=== PATIENT | male | born 1945 | race Caucasian/White ===

== ENCOUNTER 2021-04-23 21:16 | Outpatient (REF) | payer MEDICARE, BC, SELFPAY ==
[2021-04-23 20:44] LABS: Hemoglobin A1C 5.5 % (<5.7)
[2021-04-23 21:11] LABS: Folate 8.1 ng/mL (8.6-20.0); TSH (W/Ref FT4) 2.85 uIU/mL (0.36-3.74); Vitamin B12 286 pg/mL (193-986)
[2021-04-24 01:39] LABS: Vitamin D 25 Total 24.8 ng/mL (30-100)
[2021-04-25 10:51] LABS: Syphilis Serology (RPR) Negative (Negative)
== END 2021-04-23 21:17 | disposition home or self-care (01) ==
LOC: NCHCN 21:16
PROVIDERS: Visit Provider Family Medicine
DX: G62.9 Polyneuropathy, unspecified (principal); G31.84 Mild cognitive impairment of uncertain or unknown etiology; E55.9 Vitamin D deficiency, unspecified
CPT/HCPCS: 82306; 82607; 82746; 83036; 84443; 86592

== ENCOUNTER 2021-12-19 08:42 | Outpatient (REF) | payer MEDICARE, BC, SELFPAY | END 2021-12-19 08:43 | disposition home or self-care (01) | LOC: LBN 08:42 | PROVIDERS: Visit Provider Urology ==

== ENCOUNTER 2021-12-19 14:53 | Outpatient (REF) | payer MEDICARE, BC, SELFPAY ==
[2021-12-19 15:36] LABS: HCT 42.4 % (40.0-50.0); HGB 14.3 g/dL (13.5-17.5); MCH 31.5 pg (27.0-33.0); MCHC 33.7 % (32.0-36.0); MCV 93 fL (80-95); MPV 12.1 fL (8.0-11.0); Platelet Count 185 10^3/uL (130-400); RBC 4.54 10^6/uL (4.36-5.78); RDW 12.9 % (11.8-14.1); RDW-SD 44.1 fL; WBC 4.73 10^3/uL (4.4-10.8)
[2021-12-19 15:53] LABS: Folate 17.8 ng/mL (8.6-20.0); Vitamin B12 537 pg/mL (193-986)
[2021-12-22 06:19] LABS: Vitamin D 25 Total 29.3 ng/mL (30-100)
== END 2021-12-19 14:54 | disposition home or self-care (01) ==
LOC: NCHCN 14:53
PROVIDERS: Visit Provider Family Medicine
DX: D53.1 Other megaloblastic anemias, not elsewhere classified (principal); E55.9 Vitamin D deficiency, unspecified; N40.1 Benign prostatic hyperplasia with lower urinary tract symptoms; N13.8 Other obstructive and reflux uropathy; E29.1 Testicular hypofunction
CPT/HCPCS: 82306; 85027; 82607; 82746; 84153

== ENCOUNTER → 2021-12-24 02:24 | Outpatient (CLI) | payer MEDICARE, BC, SELFPAY ==
--- NOTE | 2021-12-24 07:32 | DI.US_ITS ---
APPROVED REPORT EXAM: Comprehensive 2D, Doppler, and color-flow Echocardiogram Patient Location: Out-Patient [facility] Molder: Clotilde Quiñones RDCS (AE) Indications: Aortic regurgitation, Conclusion Normal left ventricular wall thickness and chamber size. Estimated ejection fraction is 60%. Wall m otion is normal The right ventricle is not well visualized Both atria are mildly dilated Aortic valve is sclerotic and trileaflet. There is no aortic stenosis. There is moderate eccentric aortic regurgitation Mild mitral annular calcification. Mild mitral regurgitation Normal tricuspid valve with mild regurgitation. Estimated right ventricular systolic pressure is 25 mmHg Dilated aortic root and ascending aorta Wall motion Left Ventricle The left ventricle is normal size. The left ventricular systolic function is normal. The left ventric ular ejection fraction is within the normal range. There is normal left ventricular wall thickness. T here is normal LV segmental wall motion. There is no ventricular septal defect visualized. LVEF is 59 %. Right Ventricle Right ventricle is not well visualized. Right ventricular systolic function could not be assessed. Atria Left atrium is mildly dilated. Right atrium is mildly dilated. The interatrial septum is intact with no evidence for an atrial septal defect. Aortic Valve Aortic valve is calcified. Aortic valve is trileaflet. No hemodynamically significant valvular aortic stenosis. Moderate aortic regurgitation. Mitral Valve Mild mitral annular calcification. No evidence of mitral valve stenosis. Mild mitral regurgitation. Tricuspid Valve The tricuspid valve is normal in structure. There is no tricuspid valve stenosis. Mild tricuspid regu rgitation. Pulmonic Valve The pulmonary valve is normal in structure. There is no pulmonic valvular stenosis. Trace pulmonic re gurgitation. Great Vessels Aortic root is mildly dilated. The ascending aorta is severely dilated.4.27 cm Aortic arch is normal in caliber. IVC is normal in size and collapses >50% with inspiration. Pericardium There is no pericardial effusion. 2D Dimensions IVSD d PLAX 1.00 cm M: 0.6-1.2 LV Vol A2C d MOD 162.2 mL LVPW d PLAX 0.99 cm M: 0.6 - 1.2 LV Vol A4C d MOD 207.4 mL LVID d PLAX 5.55 cm M: 4.2 - 5.8 LA vol/ BSA A2C s A-L 49.2 mL/m2 LVDs 3.70 cm M: 2.5 - 4.0 LA vol/ BSA A4C s A-L 40.5 mL/m2 Ao Root d 3.93 cm M: 3.1 - 3.7 LA Vol/ BSA Biplane s A-L 45.5 mL/m2 RA Area A4C 25.30 cm2 LA Area A4C s MOD 25.30 cm2 RA Vol/ BSA A4C s A-L 44.0 mL/m2 LA Area A2C s MOD 27.37 cm2 Ao Asc Diam d 4.27 cm M: 2.6 - 3.4 LV EF A4C MOD 59.7 % LV EF Teichholz 60.9 % LV EF A2C MOD 58.6 % LVEF (Gandhi's) 58.22 % M: 52 - 72 LV EF Biplane MOD 58.2 % LV Volume 138.12 mL M: 62 - 150 SV 107.37 mL LV Volume Index 68.71 mL/m2 M: 34 - 74 SV Index 53.45 mL/m2 LV Vol Biplane MOD 184.4 mL FS 32.95 % M-Mode TAPSE 2.53 cm (M/F) >1.7 LV Diastology E/A Ratio 0.5 MV E Vmax 0.46 (0.4-1.3 m/s) MV A Vmax 0.85 (0.4-1.3 m/s) MV E/A Ratio 0.52 Aortic Valve LVOT Area 3.06 cm2 AoV Area Vmax 1.60 cm2 LVOT Vmax 1.11 m/s AoV Area/ BSA (Vmax) 0.79 cm2/m2 LVOT Mean Taiwo. 0.81 m/s AQUILES Mean Taiwo. 1.67 cm2 LVOT Peak Grad 4.9 mmHg AQUILES Mean Taiwo. Index 0.83 cm2/m2 LVOT Mean Grad 2.9 mmHg AR DT 2302 msec LVOT VTI 0.281 m AR PHT 668 msec LVOT Diam s 1.95 cm AoV Vmax 2.12 m/s Velocity Ratio 0.52 AoV Mean Taiwo. 1.48 m/s AoV Peak Grad 18.0 mmHg LVOT SV 86.05 mL AoV Mean Grad 10.0 mmHg AoV VTI 0.464 m AoV Area VTI 1.86 cm2 AoV Area/ BSA (VTI) 0.92 cm/m2 Mitral Valve MV DT 427 (160-240 msec) MV PHT 124 msec MV Area PHT 1.78 cm2 MV VTI 0.422 m MV Area VTI 2.04 (4.0-6.0 cm2) Pulmonary Valve PV Vmax 1.10 (0.5-1.5 m/s) RVOT Peak Gr. 1.64 mmHg PV Peak Grad 4.9 mmHg RVOT Mean Gr. 0.75 mmHg PV Mean Grad 2.4 mmHg RVOT VTI 0.147 m PV VTI 0.215 m RVOT Vmax 0.64 m/s Tricuspid Valve TR Peak Grad 21.8 mmHg TR Vmax 2.34 m/s RA Pressure 3.00 mmHg RVSP (TR) 24.8 mmHg
== END ==
PROVIDERS: Visit Provider Family Medicine
DX: I35.1 Nonrheumatic aortic (valve) insufficiency (principal)
CPT/HCPCS: 93306

== ENCOUNTER 2021-12-24 02:52 | Outpatient (CLI) | payer MEDICARE, BC, SELFPAY | END 2021-12-24 02:53 | disposition home or self-care (01) | LOC: LBO 02:53 | PROVIDERS: PCP Family Medicine ==

== ENCOUNTER → 2022-01-28 12:54 | Outpatient (CLI) | payer MEDICARE, BC, SELFPAY ==
--- NOTE | 2022-01-28 | DI.RAD_ITS ---
Exam(s) XR HIP LT COMPLETE AP PELVIS EXAM: XR HIP LT COMPLETE AP PELVIS CLINICAL HISTORY: LT HIP PAIN, M25.552 TECHNIQUE: COMPARISON: No exams were available for comparison FINDINGS: Two views were obtained. There are mild degenerative changes of the SI joints bilaterally. Cartilag inous joint spaces of the hips are fairly well maintained. No other significant bony or soft tissue abnormality seen. IMPRESSION: RADIATION DOSE DELIVERED: Total DLP
== END ==
PROVIDERS: PCP Family Medicine; Visit Provider Family Medicine
DX: M16.0 Bilateral primary osteoarthritis of hip (principal)
CPT/HCPCS: 73502

== ENCOUNTER → 2022-03-16 13:53 | Outpatient (BNVA) | payer MEDICARE, BC, SELFPAY | PROVIDERS: PCP Family Medicine; Referring Provider Family Medicine; Visit Provider Internal Medicine Cardiovascular Disease | DX: I77.810 Thoracic aortic ectasia (principal); I35.1 Nonrheumatic aortic (valve) insufficiency | CPT/HCPCS: 93005; 99202; 99203 ==

== ENCOUNTER 2022-03-16 14:02 | Outpatient (CLI) | payer MEDICARE, BC, SELFPAY ==
--- NOTE | 2022-03-16 14:00 | RT.EKG_ITS ---
APPROVED REPORT Exam: Resting ECG Reason for Exam: aortic regurg Patient Location: O HR:73 bpm ECG Measurements Heart Rate 73 AXIS WY 194 P 3 QRSd 105 QRS -18 QT 389 T -19 QTc 429 Conclusion Sinus rhythm...normal P axis, V-rate 50- 99 Abnormal R-wave progression, early transition...QRS area>0 in V2 LVH with secondary repolarization abnormality...multi-LVH criteria, abnrm ST-T
== END 2022-03-16 14:03 | disposition home or self-care (01) ==
LOC: DI.CARD 14:03
PROVIDERS: PCP Family Medicine; Visit Provider Internal Medicine Cardiovascular Disease
DX: I35.1 Nonrheumatic aortic (valve) insufficiency (principal); I77.819 Aortic ectasia, unspecified site
CPT/HCPCS: 93010

== ENCOUNTER 2022-04-21 18:51 | Outpatient (REF) | payer MEDICARE, BC, SELFPAY ==
[2022-04-21 20:35] LABS: HCT 40.5 % (40.0-50.0); HGB 13.5 g/dL (13.5-17.5); MCH 31.5 pg (27.0-33.0); MCHC 33.3 % (32.0-36.0); MCV 94 fL (80-95); MPV 11.9 fL (8.0-11.0); Platelet Count 202 10^3/uL (130-400); RBC 4.29 10^6/uL (4.36-5.78); RDW 12.5 % (11.8-14.1); RDW-SD 43.6 fL; WBC 6.63 10^3/uL (4.4-10.8)
[2022-04-21 21:12] LABS: Vitamin D 25 Total 37.1 ng/mL (30-100)
[2022-04-21 21:17] LABS: Vitamin B12 770 pg/mL (193-986)
[2022-04-21 21:23] LABS: Folate > 20.0 ng/mL (8.6-20.0)
== END 2022-04-21 18:52 | disposition home or self-care (01) ==
LOC: NCHCN 18:51
PROVIDERS: PCP Family Medicine; Visit Provider Family Medicine
DX: E55.9 Vitamin D deficiency, unspecified (principal); D53.1 Other megaloblastic anemias, not elsewhere classified; Z85.79 Personal history of other malignant neoplasms of lymphoid, hematopoietic and related tissues
CPT/HCPCS: 82306; 85027; 82607; 82746

== ENCOUNTER 2022-11-02 12:04 | Outpatient (REF) | payer MEDICARE, BC, SELFPAY ==
[2022-11-02 15:37] LABS: ALT 31 U/L (16-63); AST 21 U/L (15-37); Alkaline Phosphatase 42 U/L (46-116); Anion Gap 7.1 mmol/L (3-11); BUN 20 mg/dL (7-18); Bilirubin, Total 0.6 mg/dL (0.2-1.0); CO2 27.9 mmol/L (21.0-32.0); CREATININE 0.8 mg/dL (0.70-1.30); Calcium 8.7 mg/dL (8.5-10.1); Chloride 103 mmol/L (98-107); Estimated GFR 91.15 (mL/min/1.73m2); Glucose 97 mg/dL (74-106); Potassium 4.5 mmol/L (3.5-5.1); Sodium 138 mmol/L (136-145); Total Protein 6.9 g/dL (6.4-8.2)
[2022-11-06 18:51] LABS: Testosterone, Free 8.78 ng/dL (3.08-11.3); Testosterone, Total 401 ng/dL (240-950)
== END 2022-11-02 12:05 | disposition home or self-care (01) ==
LOC: LBN 12:04
PROVIDERS: PCP Family Medicine; Visit Provider Urology
DX: E29.1 Testicular hypofunction (principal)
CPT/HCPCS: 80053; 84402; 84403

== ENCOUNTER 2023-01-28 18:10 | Outpatient (REF) | payer MEDICARE, BC, SELFPAY ==
[2023-01-28 19:25] LABS: Abs Immature Grans 0.02 10^3/uL (0.0-0.06); Absolute Basophil Count 0.04 10^3/uL (0.0-0.2); Absolute Eosinophil Count 0.24 10^3/uL (0.0-0.7); Absolute Lymphocyte Count 2.28 10^3/uL (1.2-3.4); Absolute Monocyte Count 0.68 10^3/uL (0.1-0.8); Absolute Neutrophil Count 3.27 10^3/uL (1.2-6.7); Basophils % 0.6; Eosinophils % 3.7; HCT 40.5 % (40.0-50.0); HGB 13.8 g/dL (13.5-17.5); Immature Grans % 0.3; Lymphocytes % 34.9; MCH 31.2 pg (27.0-33.0); MCHC 34.1 % (32.0-36.0); MCV 92 fL (80-95); MPV 11.4 fL (8.0-11.0); Monocytes % 10.4; Neutrophils % 50.1; Platelet Count 187 10^3/uL (130-400); RBC 4.42 10^6/uL (4.36-5.78); RDW 12.7 % (11.8-14.1); RDW-SD 42.8 fL; WBC 6.53 10^3/uL (4.4-10.8)
[2023-01-28 19:28] LABS: Anion Gap 9.4 mmol/L (3-11); BUN 16 mg/dL (7-18); CO2 27.6 mmol/L (21.0-32.0); CREATININE 0.8 mg/dL (0.70-1.30); Calcium 8.9 mg/dL (8.5-10.1); Chloride 101 mmol/L (98-107); Estimated GFR 91.15 (mL/min/1.73m2); Glucose 87 mg/dL (74-106); Potassium 3.9 mmol/L (3.5-5.1); Sodium 138 mmol/L (136-145)
[2023-01-29 19:59] LABS: PSA, Screening 5.4 ng/mL (<=6.5)
== END 2023-01-28 18:11 | disposition home or self-care (01) ==
LOC: NCHCN 18:10
PROVIDERS: PCP Family Medicine; Visit Provider Physician Assistant Medical
DX: R35.0 Frequency of micturition (principal); Z12.5 Encounter for screening for malignant neoplasm of prostate; D53.1 Other megaloblastic anemias, not elsewhere classified
CPT/HCPCS: 80048; 84153; 85025

== ENCOUNTER 2023-03-15 12:05 | Outpatient (REF) | payer MEDICARE, BC, SELFPAY ==
[2023-03-15 15:55] LABS: C-Reactive Protein 0.65 mg/dL (0.0-0.3)
[2023-03-17 14:33] LABS: HLA-B27 Result Negative
== END 2023-03-15 12:06 | disposition home or self-care (01) ==
LOC: NCHCN 12:05
PROVIDERS: PCP Family Medicine; Visit Provider Family Medicine
DX: M53.3 Sacrococcygeal disorders, not elsewhere classified (principal); R79.82 Elevated C-reactive protein (CRP); Z01.83 Encounter for blood typing
CPT/HCPCS: 86812; 86140

== ENCOUNTER → 2023-03-16 07:44 | Outpatient (BNVA) | payer MEDICARE, BC, SELFPAY | PROVIDERS: PCP Family Medicine; Referring Provider Family Medicine; Visit Provider Surgery | DX: R10.31 Right lower quadrant pain (principal) | CPT/HCPCS: 99203; 99214 ==

== ENCOUNTER 2023-04-04 19:59 | Emergency (ER) | payer MEDICARE, BC, SELFPAY ==
[2023-04-04 20:05] VITALS: BP 121/63; PULSE 82; RESP 16; TEMP 36.9; O2SAT 97
--- NOTE | 2023-04-04 20:53 | ED.GENADUL_ITS ---
Discharge Plan Disposition Patient Disposition: Home Condition: Stable Discharge Details Chief Complaint: GenMedical Clinical Impression: COVID, Diarrhea Primary Care Provider: Ana María Mukherjee ED Provider: Deni Otto Home Meds and New Rx's Prescriptions: No Action turmeric root extract 500 mg capsule 500 mg PO DAILY testosterone 50 mg/5 gram (1 %) gel 1 tube transdermal QAM folic acid 1 mg tablet 1 mg PO DAILY vitamin B complex [B Complex-Vitamin B12] Tablet 1 tab PO DAILY esomeprazole magnesium [Nexium] 40 mg capsule,delayed release(DR/EC) 40 mg PO DAILY PRN gabapentin 100 mg capsule 100 mg PO TID PRN acetaminophen [Tylenol] 325 mg tablet 325 mg PO ONCE PRN ibuprofen 200 mg tablet 200 mg PO Q6H PRN cholecalciferol (vitamin D3) 50 mcg (2,000 unit) capsule 50 mcg PO DAILY senna 8.6 mg capsule 8.6 mg PO BID PRN Discharge Instructions Instructions: Acute Diarrhea (ED), Viral Syndrome (ED) Additional Instructions: Please continue to hydrate orally. Consider purchasing Gatorade and/or Pedialyte. Continue with ibuprofen and/or acetaminophen as needed for body aches and fevers. Please return to the emergency department for any worsening symptoms. Medical Decision Making 77-year-old male presents with several days of fatigue dry cough loose stool tested positive for COVID today, endorses that loose stools improving after Imodium. No blood or mucus in stool. No nausea no vomiting no abdominal pain no chest pain or shortness of breath. Lungs clear bilaterally afebrile nontoxic not tachycardic not hypotensive. No evidence of dehydration on examination. Patient family initially interested in Paxlovid treatment. I counseled patient and family at bedside regarding pros and cons of Paxlovid and after shared dec ision we decided to hold Paxil at this time. Given cough fatigue body aches I am administering a dose of p.o. dexamethasone for anti-inflammatory purposes. Patient given home care instructions and strict return precautions for any worsening symptoms. HPI General Date/Time Provider Initiated Documentation: 04/04/23 20:07 . HPI Narrative: 77-year-old male presents with several days of fatigue, loose stool, dry cough, denies shortness of breath chest pain presyncope nausea or vomiting. Denies abdominal pain or fevers. [place] some cold sweats and chills, tested positive for COVID today. Denies longstanding comorbidities or immunocompromise state; no blood or mucus in stool. Took some Imodium today and feels as if his stool frequency is slowing down/improving Related Data Home Medications Medication Instructions Recorded Confirmed acetaminophen 325 mg tablet 325 mg PO ONCE PRN 01/01/22 03/16/23 (Tylenol) cholecalciferol (vitamin D3) 50 50 mcg PO DAILY 01/01/22 03/16/23 mcg (2,000 unit) capsule esomeprazole magnesium 40 mg 40 mg PO DAILY PRN 01/01/22 03/16/23 capsule,delayed release (Nexium) gabapentin 100 mg capsule 100 mg PO TID PRN 01/01/22 03/16/23 ibuprofen 200 mg tablet 200 mg PO Q6H PRN 01/01/22 03/16/23 sennosides 8.6 mg capsule (senna) 8.6 mg PO BID PRN 01/01/22 03/16/23 turmeric root extract 500 mg 500 mg PO DAILY 03/16/22 03/16/23 capsule folic acid 1 mg tablet 1 mg PO DAILY 03/16/23 03/16/23 testosterone 50 mg/5 gram (1 %) 1 tube transdermal QAM 03/16/23 03/16/23 transdermal gel vitamin B complex (B 1 tab PO DAILY 03/16/23 03/16/23 Complex-Vitamin B12 tablet) Allergies Allergy/AdvReac Type Severity Reaction Status Date / Time gluten Allergy Severe Verified 03/16/23 07:52 Penicillins Allergy Verified 03/16/23 07:52 General Stated Complaint: GenMedical MARK: 3 Review of Systems Narrative: Review of Systems Constitutional: Fatigue Eyes: negative ENT: negative Cardiovascular: negative Respiratory: Cough Gastrointestinal: Diarrhea : negative Musculoskeletal: negative Skin: negative Neurologic: negative Psych: negative PFSH All Active Problems (Updated 04/04/23 @ 20:58 by Deni Otto MD) Diarrhea (Acute) COVID (Acute) Preoperative clearance (Acute) Right lower quadrant abdominal pain (Acute) Pain of left hip joint (Acute) Urinary frequency (Acute) Hernia (Chronic) Medical History Aortic dilatation Arthritis Barretts esophagus Basal cell carcinoma Dermatitis herpetiformis Erectile dysfunction Folate deficiency anemia Hypogonadism in male Lymphoma 1977 Mild cognitive impairment Moderate aortic regurgitation Neuropathy Squamous cell carcinoma in situ Vitamin B12 deficiency Vitamin D deficiency Surgical History S/P appendectomy (~1977) S/P Yara fundoplication (without gastrostomy tube) procedure Family History Mother Cancer breast ( of) Father Abdominal aortic aneurysm Brother Heart disease Cabgx2 , 2 valve replacements, Sister Abdominal aortic aneurysm had repaired Aortic valve replaced Social History Smoking/Tobacco Use Status: Never Smoking risk assessment performed?: Yes Alcohol Intake: current Alcohol Intake frequency: 0-2 drinks per day Drug use: Never Substance use type: does not use Do you feel safe at home: Yes Do you feel safe in your relationship?: Yes Exam Narrative Exam Narrative: Physical Examination General: alert, awake, cooperative, resting comfortably, no acute distress HEENT: normocephalic, atraumatic; PERRL, EOM intact, conjunctiva normal; no nasal discharge; moist mucous membranes, oral and pharyngeal mucosa normal, tolerating secretions Neck: supple, trachea midline; full ROM Chest: normal to inspection Respiratory: normal respiratory effort, speaking in full sentences, clear to auscultation, no wheezing, rales or rhonchi Cardiac: regular rate, regular rhythm, S1S2 intact, no murmurs rubs or gallops GI: abdomen soft, non-tender, non-distended; no palpable mass or hepatosplenomegaly Skin: no lesions, rashes or trauma appreciated Neuro: AAOx3, normal speech, moving all extremities Course Vital Signs Vital signs: Vital Signs Temperature 36.9 C 04/04/23 20:05 Pulse 82 04/04/23 20:05 Respiratory Rate 16 04/04/23 20:05 Blood Pressure 121/63 04/04/23 20:05 Pulse Oximetry 97 04/04/23 20:05 Temperature 36.9 C 04/04/23 20:05 Temperature Source Oral 04/04/23 20:05 Pulse 82 04/04/23 20:05 Respiratory Rate 16 04/04/23 20:05 Respiratory Effort Normal, Non-Labored 04/04/23 20:12 Blood Pressure 121/63 04/04/23 20:05 Blood Pressure Position Sitting 04/04/23 20:05 Pulse Oximetry 97 04/04/23 20:05 Oxygen Delivery Method Room Air 04/04/23 20:05 Oxygen Flow Rate 0 04/04/23 20:05
[2023-04-04] MEDS: Dexamethasone 10 MG/ML VIAL PO (21:04)
[2023-04-04 21:05] VITALS: RESP 16
[2023-04-04 21:08] VITALS: BP 124/64; PULSE 80; RESP 16; O2SAT 97
== END 2023-04-04 21:09 | disposition home or self-care (01) ==
PROVIDERS: Emergency Provider Emergency Medicine; PCP Family Medicine
DX: U07.1 COVID-19 (principal); R19.7 Diarrhea, unspecified; R05.9 Cough, unspecified; R53.83 Other fatigue; R52 Pain, unspecified
CPT/HCPCS: 99283; J1100

== ENCOUNTER → 2023-04-20 02:24 | Outpatient (CLI) | payer MEDICARE, BC, SELFPAY ==
--- NOTE | 2023-04-20 | DI.MRI_ITS ---
Exam(s) MR LUMBAR SPINE WO EXAM: MR LUMBAR SPINE WO CLINICAL HISTORY: SPINAL STENOSIS, LUMBAR, M48.061, SACROILIAC JOINT PAIN RT, M53.3. TECHNIQUE: Multiplanar multisequence MRI of the Lumbar spine was performed. COMPARISON: MR MR LUMBAR SPINE WO CONTRAST from 11/20/2019 FINDINGS: Bones: The last intervertebral disc space is designated the S1/S2 level for the numbering purpose of this examination. The vertebral body heights are well maintained. There is a right convex lumbar sc oliosis. Endplate degenerative signal changes are seen particularly at L3-4 and L4-L5 Cord: The conus tip ends at the T12-L1 level. It is of normal size and signal intensity. T12-L1: No disc herniations or bulges are present. No central spinal canal or neural foraminal stenos is. L1-2: No disc herniations or bulges are present. No central spinal canal or neural foraminal stenosis . L2-3: No disc herniations or bulges are present. No central spinal canal or neural foraminal stenosis . L3-4: No disc herniations or bulges are present. There are mild degenerative changes of the left face t joints at this level.No significant right neural foraminal stenosis or central spinal canal stenosi s. There is mild left neural foraminal stenosis. L4-5: There is a diffuse disc bulge. There are degenerative changes of the facets. No significant c entral spinal canal stenosis is seen.There is mild bilateral neural foraminal stenosis. L5-S1: There is a mild diffuse disc bulge. There are hypertrophic changes of the facets, right great er than left. No significant central spinal canal stenosis is seen.There is moderate right neural fo raminal stenosis. No significant left neural foraminal stenosis. Soft tissues: The visualized SI joints and sacrum are well maintained. The paraspinal soft tissues ar e unremarkable. IMPRESSION: 1. Multilevel degenerative changes in the lumbar spine and a right convex lumbar curvature. 2. Degenerative changes at L5-S1 resulting in moderate right neural foraminal stenosis. 3. Degenerative changes at L4-L5 resulting in mild bilateral neural foraminal stenosis. 4. Degenerative changes at L3-L4 resulting in mild left neural foraminal stenosis. DATA REPOSITORY:
== END ==
PROVIDERS: PCP Family Medicine; Visit Provider Family Medicine
DX: M48.062 Spinal stenosis, lumbar region with neurogenic claudication (principal); M53.3 Sacrococcygeal disorders, not elsewhere classified
CPT/HCPCS: 72148

== ENCOUNTER → 2023-04-21 04:16 | Outpatient (CLI) | payer MEDICARE, BC, SELFPAY ==
--- NOTE | 2023-04-21 08:02 | DI.CT_ITS ---
Exam(s) CT ABDOMEN PELVIS W EXAM: CT ABDOMEN PELVIS W CLINICAL HISTORY: RLQ pain, appendectomy scar, felt a bulge,r10.31. TECHNIQUE: Imaging Protocol: Axial computed tomography images with coronal and sagittal reformatted images were created and reviewed CONTRAST MATERIAL: Intravenous: Omnipaque 350 Contrast volume:100 ml Oral: yes COMPARISON: No exams were available for comparison FINDINGS: ABDOMEN and PELVIS: Lung Bases: Normal where visualized. Heart is the included on exam but significantly enlarged. Mod erate size hiatal hernia. Liver: Normal density. No measurable mass. Gallbladder and biliary tract: No radiodense calculus or dilation. Pancreas: Normal density. No abnormal calcifications or inflammatory process. No evidence of mass. Spleen: Normal. Kidneys: Normal size, contour and axis. No radiodense stones. No obstructive uropathy. No suspicious masses seen. Adrenal glands: No masses seen. Vasculature: Abdominal aorta non-dilated. Soft tissues: Fatty containing right inguinal hernia. Mild scarring right lower quadrant abdominal w all without evidence of hernia. Bladder: No gross wall thickening. No calculi.No focal mass. Bowel: Diverticulosis. No evidence of diverticulitis. Normal quantity of stool. No obstruction. No bowel wall thickening. Appendix not seen Peritoneal cavity: No ascites. No focal collection or mesenteric inflammatory response. Bones: Degenerative changes and mild scoliosis. Reproductive organs: Within normal limits. Lymph nodes: Unremarkable. IMPRESSION:: Small fatty containing right inguinal hernia. Diverticulosis. No evidence of diverticulitis. Moderate size hiatal hernia. Cardiomegaly. RADIATION DOSE DELIVERED: Total DLP DATA REPOSITORY: All CT scans at this facility are submitted to the National Radiology Data Registry (NRDR) Dose Index Registry (DIR) with the [employer] (A[employer]). RADIATION OPTIMIZATION: All CT scans at this facility use at least one of these dose optimization te chniques: automated exposure control; mA and/or kV adjustment per patient size (includes targeted exa ms where dose is matched to clinical indication); or iterative reconstruction.
[2023-04-21] MEDS: Barium Sulfate 2% W/V-Berry Smoothie 450 ML BTL PO (11:30)
[2023-04-21 11:43] LABS: CREATININE 0.8 mg/dL (0.70-1.30); Estimated GFR 91.15 (mL/min/1.73m2)
[2023-04-21] MEDS: Normal Saline - Diluent 50 ML VIAL IJ (13:20)
[2023-04-21] MEDS: Omnipaque 350 MG/ML 500 ML BTL-Imaging package IJ (13:21)
== END ==
PROVIDERS: PCP Family Medicine; Visit Provider Surgery
DX: Z01.818 Encounter for other preprocedural examination (principal); R10.31 Right lower quadrant pain; K40.90 Unilateral inguinal hernia, without obstruction or gangrene, not specified as recurrent; I51.7 Cardiomegaly; K44.9 Diaphragmatic hernia without obstruction or gangrene
CPT/HCPCS: 74177; 82565

== ENCOUNTER 2023-04-28 11:42 | Day surgery (SDC) | payer MEDICARE, BC, SELFPAY ==
[2023-04-28] VITALS (8 sets, daily range): BP systolic 105–173; BP diastolic 56–90; PULSE 52–71; RESP 13–18; TEMP 36.1–36.8; O2SAT 96–99; BMI 28.8
--- NOTE | 2023-04-28 07:03 | W.PM.HP.N ---
Date of service: 04/28/23 Time of Service: 15:04 Assessment and Plan Assessment and plan (1) Right inguinal hernia: Status: Acute Assessment and plan: Mr. Melendez is a pleasant 77 year old male with a Right inguinal hernia. He has had some discomfort. We discussed the Hernia repair in detail. We also discussed the possible complications. Risks, benefits and complications have been reviewed. Complications include but are not limited to bleeding, infection, injury to vas, vessels and nerves, injury to bowel, recurrence (3-5%), chronic pain and adverse reaction to medications. Questions were entertained and answered to their satisfaction and they wished to proceed. The site was marked in [facility]. The patient signed the consent History of Present Illness Narrative: Mr. Melendez is a pleasant 77-year-old gentleman who is here in [facility] for right inguinal hernia repair. Patient tells me that 1 morning in the shower he was washing himself when he felt a lump in the right lower quadrant. It was not in the groin it was a little bit higher up. He was able to push on it and disappeared. 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 He has been having some back pain as well secondary to arthritis and has stopped lifting. Since he has not been doing any lifting the discomfort in the right lower quadrant has gone away as well. He has not had any changes in bowel habits or any urinary symptoms. His past surgical history is significant for open appendectomy back in 1977 as well as a Yara fundoplication. He has had regular colonoscopies and upper endoscopies done at [facility] [place]. He has some mitral regurg but no history of heart attacks or strokes. CT scan showed a Right inguinal hernia. Review of Systems Constitutional Constitutional: Denies fatigue, Denies fever(s), Denies headache(s) and Denies weight loss Eyes Eyes: Denies blurry vision and Denies change in vision ENT Ears, Nose, Mouth, and Throat: Denies dysphagia and Denies headache(s) Cardiovascular Cardiovascular: Denies chest pain, Denies chest pain at rest, Denies irregular heart rhythm, Denies palpitations, Denies dyspnea and Denies dyspnea on exertion Respiratory Respiratory: Denies cough, Denies dyspnea and Denies dyspnea on exertion Gastrointestinal Gastrointestinal: Reports system reviewed and no additional complaints, except as documented and Denies dysphagia Neurologic Neurologic: Denies headache(s) Endocrine Endocrine: Denies fatigue and Denies palpitations Hematologic/Lymphatic Hematologic/Lymphatic: Denies easy bleeding, Denies easy bruising and Denies lymphadenopathy Allergic/Immunologic Allergic/Immunologic: Reports system reviewed and no additional complaints, except as documented PFSH All Active Problems (Updated 04/28/23 @ 15:06 by Mary Reynolds MD) Right inguinal hernia (Acute) Diarrhea (Acute) COVID (Acute) Preoperative clearance (Acute) Right lower quadrant abdominal pain (Acute) Pain of left hip joint (Acute) Urinary frequency (Acute) Hernia (Chronic) Medical History Neuropathy Arthritis Basal cell carcinoma 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 Vitamin D deficiency Lymphoma 1977 Barretts esophagus Erectile dysfunction Mild cognitive impairment Moderate aortic regurgitation Hypogonadism in male Folate deficiency anemia Vitamin B12 deficiency Aortic dilatation Surgical History S/P Yara fundoplication (without gastrostomy tube) procedure S/P appendectomy (~1977) Family History Mother Cancer breast ( of) Father Abdominal aortic aneurysm Brother Heart disease Cabgx2 , 2 valve replacements, Sister Abdominal aortic aneurysm had repaired Aortic valve replaced Social History Smoking/Tobacco Use Status: Never Smoking risk assessment performed?: Yes Alcohol Intake: current Alcohol Intake frequency: 0-2 drinks per day Drug use: Never Substance use type: does not use Housing: house Do you feel safe at home: Yes Do you feel safe in your relationship?: Yes Meds Allergies and Home Medications Allergies Allergy/AdvReac Type Severity Reaction Status Date / Time gluten Allergy Severe Verified 04/28/23 12:25 Penicillins Allergy Verified 04/28/23 12:25 Home Medications Medication Instructions Recorded Confirmed Type acetaminophen 325 mg tablet 325 mg PO ONCE PRN 01/01/22 04/28/23 History (Tylenol) cholecalciferol (vitamin D3) 50 50 mcg PO DAILY 01/01/22 04/28/23 History mcg (2,000 unit) capsule esomeprazole magnesium 40 mg 40 mg PO DAILY PRN 01/01/22 04/28/23 History capsule,delayed release (Nexium) gabapentin 100 mg capsule 100 mg PO TID PRN 01/01/22 04/28/23 History ibuprofen 200 mg tablet 200 mg PO Q6H PRN 01/01/22 04/28/23 History sennosides 8.6 mg capsule (senna) 8.6 mg PO BID PRN 01/01/22 04/28/23 History turmeric root extract 500 mg 500 mg PO DAILY 03/16/22 04/28/23 History capsule folic acid 1 mg tablet 1 mg PO DAILY 03/16/23 04/28/23 History testosterone 50 mg/5 gram (1 %) 1 tube transdermal QAM 03/16/23 04/28/23 History transdermal gel vitamin B complex (B 1 tab PO DAILY 03/16/23 04/28/23 History Complex-Vitamin B12 tablet) Exam Resp Effort & Inspection: normal respiratory effort Auscultation: clear to auscultation bilaterally Cardio Rate: regular rate Rhythm: regular rhythm GI Inspection: normal to inspection Palpation: soft, no hepatosplenomegaly and hernia (RIH) Time Spent Time spent with Patient: <40 minutes Time was spent: counseling the patient
[2023-04-28] MEDS: Acetaminophen 500 MG TAB 1000 MG PO (13:15)
[2023-04-28] MEDS: Gabapentin 300 MG CAP PO (13:16)
[2023-04-28] MEDS: Celecoxib 200 MG CAP PO (13:16)
--- NOTE | 2023-04-28 13:20 | W.ANESPRE ---
General Info Date of Service Date Performed: 04/28/23 Height: 5 ft 9 in Weight: 88.4 kg Body Mass Index (BMI): 28.8 Surgical Procedure: Operation Date: 04/28/23 13:10 Proposed Procedure Side Surgeon p Herniorrhaphy Inguinal w/Mesh Right Mary Reynolds MD Meds Allergies and Home Medications Allergies Allergy/AdvReac Type Severity Reaction Status Date / Time gluten Allergy Severe Verified 04/28/23 12:25 Penicillins Allergy Verified 04/28/23 12:25 Home Medication Medication Instructions Recorded acetaminophen 325 mg tablet 325 mg PO ONCE PRN 01/01/22 (Tylenol) cholecalciferol (vitamin D3) 50 50 mcg PO DAILY 01/01/22 mcg (2,000 unit) capsule esomeprazole magnesium 40 mg 40 mg PO DAILY PRN 01/01/22 capsule,delayed release (Nexium) gabapentin 100 mg capsule 100 mg PO TID PRN 01/01/22 ibuprofen 200 mg tablet 200 mg PO Q6H PRN 01/01/22 sennosides 8.6 mg capsule (senna) 8.6 mg PO BID PRN 01/01/22 turmeric root extract 500 mg 500 mg PO DAILY 03/16/22 capsule folic acid 1 mg tablet 1 mg PO DAILY 03/16/23 testosterone 50 mg/5 gram (1 %) 1 tube transdermal QAM 03/16/23 transdermal gel vitamin B complex (B 1 tab PO DAILY 03/16/23 Complex-Vitamin B12 tablet) Current Visit Medications: Current Medications Generic Name Dose Route Start Last Admin Trade Name Freq PRN Reason Stop Dose Admin Acetaminophen 1,000 mg 04/28/23 06:00 04/28/23 13:15 Acetaminophen 500 Mg Tab PO 04/28/23 16:00 1,000 mg PREOP CHRISTIE Administration Celecoxib 200 mg 04/28/23 06:00 04/28/23 13:16 Celecoxib 200 Mg Cap PO 04/28/23 16:00 200 mg PREOP CHRISTIE Administration Gabapentin 300 mg 04/28/23 06:00 04/28/23 13:16 Gabapentin 300 Mg Cap PO 04/28/23 16:00 300 mg PREOP CHRISTIE Administration Ringer's Solution 1,000 mls @ 80 mls/hr 04/28/23 06:00 IV 05/27/23 23:59 INFUSION CHRISTIE Cefazolin Sodium/Dextrose 2 gm in 50 mls @ 100 mls/hr 04/28/23 06:00 Ancef Duplex IVPB 04/28/23 16:00 PREOP CHRISTIE IV Miscellaneous Supplies 1 each 04/28/23 06:00 Iv Access IV 05/27/23 23:59 DIRECTED CHRISTIE Sodium Chloride 0 ml 04/28/23 06:00 Normal Saline Flush 10 Ml Syr IV 05/27/23 23:59 PRN PRN Sodium Chloride 0 ml 04/28/23 06:00 Normal Saline 10 Ml Vial IJ 05/27/23 23:59 DIRECTED PRN Sterile Water 0 ml 04/28/23 06:00 Water,Injection,Sterile 10 Ml Vial IJ 05/27/23 23:59 DIRECTED PRN PFSH Active Problems Active Problems: Problem Status Onset Code Diarrhea R19.7 COVID U07.1 Preoperative clearance Z01.818 Right lower quadrant abdominal pain R10.31 Pain of left hip joint M25.552 Urinary frequency R35.0 Hernia K46.9 Medical History Medical History Neuropathy Arthritis Basal cell carcinoma 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 Vitamin D deficiency Lymphoma 1977 Barretts esophagus Erectile dysfunction Mild cognitive impairment Moderate aortic regurgitation Hypogonadism in male Folate deficiency anemia Vitamin B12 deficiency Aortic dilatation Surgical History Surgical History S/P Yara fundoplication (without gastrostomy tube) procedure S/P appendectomy (~1977) Tobacco Smoking/Tobacco Use Status: Never Alcohol Alcohol Intake: current Alcohol intake frequency: 0-2 drinks per day Substance Use Substance use: Never Substance use type: does not use Vital Signs and Lab Results Vital Signs Most Recent Vital Signs in EMR: Most Recent Vital Signs Temp Pulse Resp BP Pulse Ox 36.8 C 71 18 105/72 97 04/28/23 12:17 04/28/23 12:17 04/28/23 12:17 04/28/23 12:17 04/28/23 12:17 Lab Results Blood Type / Crossmatch: No Data to Display Complete Blood Count: No Data to Display Complete Metabolic Panel: Creatinine 0.8 mg/dL (0.70-1.30) 04/21/23 11:25 Est GFR (CKD-EPI 2020) 91.15 (mL/min/1.73m2) 04/21/23 11:25 Liver Function Panel: No Data to Display Coagulation Panel: No Data to Display Cardiac Panel: No Data to Display Arterial Blood Gas: No Data to Display Venous Blood Gas: No Data to Display Pancreas Panel: No Data to Display Thyroid Panel: No Data to Display Infectious Disease: No Data to Display Blood Cultures: No Data to Display Toxicology Panel: No Data to Display Imaging and Studies Imaging and Studies Study information below may be from another EMR and interpreted by another provider. Please see original notes in EMR for more complete details. EKG Summary: 03/16/2022: Exam: Resting ECG Reason for Exam: aortic regurg Patient Location: O HR:73 bpm ECG Measurements Heart Rate 73 AXIS AK 194 P 3 QRSd 105 QRS -18 QT 389 T-19 QTc 429 Conclusion Sinus rhythm...normal P axis, V-rate 50- 99 Abnormal R-wave progression, early transition...QRS area>0 in V2 LVH with secondary repolarization abnormality...multi-LVH criteria, abnrm ST-T Echocardiogram Summary: 12/24/2021: Conclusion Normal left ventricular wall thickness and chamber size. Estimated ejection fraction is 60%. Wall motion is normal The right ventricle is not well visualized Both atria are mildly dilated Aortic valve is sclerotic and trileaflet. There is no aortic stenosis. There is moderate eccentric aortic regurgitation Mild mitral annular calcification. Mild mitral regurgitation Normal tricuspid valve with mild regurgitation. Estimated right ventricular systolic pressure is 25 mmHg Dilated aortic root and ascending aorta Aortic root is mildly dilated. The ascending aorta is severely dilated.4.27 cm Aortic arch is normal in caliber. IVC is normal in size and collapses >50% with inspiration. Cardiology note from 02/2022 recommends (2) year follow up echocardiogram Anesthesia Assessment and Plan Anesthesia History Personal History: No History of Anesthesia Complications Family History: No Family History of Anesthesia Complications Exercise Tolerance Exercise Tolerance: Metabolic Equivalents>4 Cardiac & Pulmonary Exam Cardiac Exam: Normal S1/S2 Heart Sounds Pulmonary Exam: Clear Bilateral Breath Sounds Implantable Cardiac Device Does patient have a Pacemaker or an ICD?: No Airway Exam Known Difficult Airway: No Mallampati Class: 1 Mouth Opening: Normal (> 3cm) Thyromental Distance: Greater than 3 cm Neck Range of Motion: Full ROM Neck Circumference: Normal Teeth Condition: Normal Dentition ASA Classification ASA Score: ASA 3 Emergency Case?: No NPO Status NPO Status: NPO Clears >2 hours, Solids >8 hours Anesthesia Plan Resuscitation Status: Full Code Anesthesia Technique: General Anesthesia Airway Planned: Endotracheal Tube (Intermittent GERD, unclear of active symptoms, patient prefers ETT versus LMA after discussion.) Pain Management: Surgeon and patient request nerve block Monitors Used: Standard Monitors
[2023-04-28] MEDS: Lactated Ringers 1,000 ML 80 ML IV (13:21)
[2023-04-28] MEDS: ceFAZolin 2 GM/50 ML BAG IVPB (15:25)
[2023-04-28] MEDS: Bupivacaine 0.25% Pres-Free 30 ML VIAL (15:32)
--- NOTE | 2023-04-28 15:48 | W.ANESNERVE ---
Nerve Block Single Injection Procedure Date and Time Date Performed: 04/28/23 Procedure Start: 15:20 Location Where Procedure Performed Procedure Location: Operating Room Procedure Stop: 15:28 Reason Performed: Postoperative Analgesia Requesting Provider: Mary Reynolds Timeout Performed Timeout Performed: Yes Monitoring Used ECG, Blood Pressure, SpO2 and ETCO2 Sterility Sterility: Hand Hygiene, Surgical Cap, Surgical Mask, Sterile Gloves and Chlorhexidine Sedation Given During Procedure Sedation Given (Indicate Dose Given): No Sedation given Patient Mental Status Patient Mental Status: Performed under general anesthesia Nerve Block 1st Nerve Block: Laterality: Right Block Type: TAP Unilateral Ultrasound Image Saved?: Yes Needle / Catheter Used: 100mm SonoPlex II Local Anesthetic Bolus (Indicate Dose Given): Injected in 3-5ml increments after negative blood aspiration, Bupivacaine 0.25% Dose:: 10 mL and Exparel Dose:: 10 mL Additives (Indicate Dose Given): None Ultrasound: Sterile probe cover and gel used Nerve Stimulator: Not Used Paresthesia: None Procedure Tolerated: No Complications Procedure Outcome: Successful Procedure Comment: Difficult anatomy, fair local spread. Performed By: Raimundo Perez
--- NOTE | 2023-04-28 17:13 | W.PM.DSUDISC ---
Date of service: 04/28/23 Time of Service: 17:17 Discharge Plan Disposition Patient Disposition: Home Condition: Stable Discharge Details Reason For Visit: [facility] Attending Provider: Mary Reynolds Primary Care Provider: Ana María Mukherjee Home Meds and New Rx's Prescriptions: New tramadol 50 mg tablet 50 mg PO Q6H PRNQty: 20 0RF Continued turmeric root extract 500 mg capsule 500 mg PO DAILY testosterone 50 mg/5 gram (1 %) gel 1 tube transdermal QAM folic acid 1 mg tablet 1 mg PO DAILY vitamin B complex [B Complex-Vitamin B12] Tablet 1 tab PO DAILY esomeprazole magnesium [Nexium] 40 mg capsule,delayed release(DR/EC) 40 mg PO DAILY PRN gabapentin 100 mg capsule 100 mg PO TID PRN acetaminophen [Tylenol] 325 mg tablet 325 mg PO ONCE PRN ibuprofen 200 mg tablet 200 mg PO Q6H PRN cholecalciferol (vitamin D3) 50 mcg (2,000 unit) capsule 50 mcg PO DAILY senna 8.6 mg capsule 8.6 mg PO BID PRN Discharge Instructions Additional Instructions: Activity at Home after surgery: 1. Make sure you walk outside at least 4 times per day 2. You should be able to climb a flight of stairs 3. No driving while in pain or taking pain medications 4. No strenuous activity or heavy lifting for 4 weeks (open surgery) Diet, Nutrition, & wound healin. Avoid alcohol until after you are recovered from your surgery 2. Make sure to eat plenty of lean protein (meat, fish, eggs, cottage cheese, beans) 3. Eat a variety of fruits and vegetables. Eat plenty of high fiber foods to avoid constipation. 4. Drink plenty of liquids to stay hydrated and avoid constipation Pain Medications: 1. Tylenol 650mg every 6 hours as needed and Ibuprofen 600 mg every 6 hours as needed. You may alternate between the 2 medications every 3 hours 2. If a narcotic has been prescribed take as directed only for breakthrough pain For Constipation: 1. Take Milk of Magnesia or MiraLax as needed for constipation Other: 1. You may shower daily. Do not scrub the incisions 2. Do not soak the incisions for 1 week 3. You may alternate ice and heat as needed for pain and swelling Wound Care: 1. Keep the incisions clean and dry Please call our office if you develop: 1. Fevers >101.5 2. Nausea or Vomiting 3. Worsening pain 4. Redness and thick discharge from the wounds If after hours please call the Hospital at and ask to speak to the on-call surgeon Activity:: see above Remove Dressings/Wound Care:: Do Not Remove Shower/Bathe:: 24 hours Diet:: As Tolerated Discharge Orders Discharge Orders: Discharge Order (Routine); Ordered 04/28/23 Ordered By: Mary Reynolds DS: Diagnosis Discharge Diagnosis (1) Right inguinal hernia: Status: Acute Asessment and Plan: The patient is doing well post-op from his right inguinal hernia surgery.? He is not having no nausea or vomiting. He is tolerating liquids and a snack. The pt is not having any chest pain or SOB.? His pain is adequately controlled. ?HEENT:? no eye pain/drainage/redness/swelling. Mild sore throat ?Cardio- NSR, no chest pain, BP stable- see VS record ?Pulm: no sob or productive cough. No hemoptysis ?Incision- dressing is c/d/i w/ no excessive bleeding or drainage ?I discussed with the patient the findings at the time of surgery and the patient?s progress. ?We reviewed expectations at home; what the patient could expect for recovery time, and in the post-operative period.? We discussed the importance of walking to avoid blood clots and pneumonia.? We discussed and reviewed the patient's post-operative wound care and dressing needs.?? We reviewed their step-gregory pain management plan, Rx called to the pharmacy of their choice.? We reviewed activity and limitations-see discharge instructions. We reviewed warning signs, and when to seek medical attention- see d/c instructions.?? Patient was given a postoperative follow-up appointment. Patient verbalized understanding of their postoperative instructions, how do to take care of themselves and their incision, and the pain management plan. Please see discharge instructions.?
--- NOTE | 2023-04-28 17:16 | W.ANESPOSTOP ---
Postoperative Evaluation Date, Time and Location Date Performed: 04/28/23 Time Performed: 17:20 Patient Location: Day Surgery Unit Vital Signs Most Recent Imported Vital Signs: Most Recent Vital Signs Temp Pulse Resp BP Pulse Ox 36.2 C L 53 L 16 171/85 H 99 04/28/23 17:04 04/28/23 17:04 04/28/23 17:04 04/28/23 17:04 04/28/23 17:04 Pain Score Most Recent Pain Score: Most Recent Pain Score Pain Level 5 04/28/23 17:04 Assessment Mental Status: Awake (Alert & Oriented to Patient Baseline) Airway and Respiratory Function: Patent airway with normal (patient baseline) respiratory exam Cardiovascular Function: Hemodynamically Stable Hydration Status: Adequately Hydrated Nausea & Vomiting: No Nausea or Vomiting Pain: Pain is tolerable per patient Peripheral Nerve Block: Regional nerve block not resolved at time of post operative discharge
--- NOTE | 2023-04-28 17:19 | ROE_ITS ---
Date of service: 04/28/23 Time of Service: 16:20 Operative Note Operative Note DATE OF PROCEDURE: 04/28/23 PRE-OP DIAGNOSIS: Right inguinal hernia POST-OP DIAGNOSIS: other (Right direct and indirect inguinal hernia) PROCEDURE: Right inguinal hernia repair with mesh SURGEON: Mary Reynolds WHEEL PRESSER: Fany Cruz ANESTHESIA TYPE: Local By Surgeon, General LMA/ETT and Primary Nerve Block Refer to Anesthesia Record ESTIMATED BLOOD LOSS: 25 PATHOLOGY: none sent COMPLICATIONS: None Patient was transported to: PACU Patient's condition: stable Implants: PERFix light plug: [id number] LOT- [id number] - 2027-04-17 Bard Mesh- LOT- [id number] REF- [id number] - 2027-02-15 Indications: Mr. Melendez is a pleasant 77 year old male with a Right inguinal hernia. He has had some discomfort. We discussed the Hernia repair in detail. We also discussed the possible complications. Risks, benefits and complications have been reviewed. Complications include but are not limited to bleeding, infection, injury to vas, vessels and nerves, injury to bowel, recurrence (3-5%), chronic pain and adverse reaction to medications. Questions were entertained and answered to their satisfaction and they wished to proceed. The site was marked in SDS. The patient signed the consent Findings: Large indirect hernia moderate sized direct hernia Procedure Description: After informed consent was obtained the patient was taken to the operating room and placed in a supine position. Monitors and SCDs were applied and a timeout was done. The patient's name, date of , procedure type, procedure site, allergies to medications, preoperative antibiotic, and DVT prophylaxis were all reviewed. The patient was placed under general anesthesia and intubated without difficulty. Fire risk was assessed. Next anesthesia did a tap block on the right side under ultrasound guidance. Please see their separate dictation. Once anesthesia was done the abdomen was prepped and draped in a sterile surgical fashion. 0.5% Marcaine was injected into the dermis in the right lower quadrant. An incision was made with a 10 blade in the right lower quadrant. Dissection was done with cautery through the subcutaneous tissues and Kishor's fascia down to the external oblique fascia. The external ring was identified and the external oblique fascia was opened sharply through the external ring. The cut fascia was grasped with hemostats the cord structures were identified and a Colby drain was placed around them. The ilioinguinal nerve was identified and cut. The cremasteric muscle was dissected away from the cord structures using both cautery and blunt dissection. A large hernia sac was identified and removed from the cord structures using blunt dissection. The hernia sac was suture ligated and amputated. The remnant was pushed back into the peritoneum. An XL plug was placed into the indirect defect and secured with 3-0 proline. A flat piece of mesh was then attached to the lacunar ligament using a 2-0 Prolene double armed suture. The mesh was secured laterally and medially with a 2-0 Prolene, with a running suture. The tails of the mesh were wrapped around the cord structures effectively cinching down the internal ring. Once the mesh was secured the tissues were irrigated with some normal saline. I inspected the area and found that an area by the lacunar ligament was not well covered with the mesh. A large plug was placed into the defect and secured. No bleeding was identified. The external oblique fascia was reapproximated using 2-0 Vicryl running suture. The Kishor's fascia was reapproximated using interrupted 3-0 Vicryl. The dermis was reapproximated with a running 4-0 Vicryl. The skin was cleaned and dried and skin affix was applied. The patient was woken up and taken back to recovery in stable condition. There were no immediate complications. Sponge, instrument and needle counts were correct at the end of the case x2.
[2023-04-28] MEDS: traMADol 50 MG TAB PO (17:44)
== END 2023-04-28 18:33 | disposition home or self-care (01) ==
PROVIDERS: PCP Family Medicine; Visit Provider Surgery
PROC: (CPT 49505; principal; 2023-04-28 13:00)
DX: K40.90 Unilateral inguinal hernia, without obstruction or gangrene, not specified as recurrent (principal); E53.8 Deficiency of other specified B group vitamins; I35.0 Nonrheumatic aortic (valve) stenosis; G62.9 Polyneuropathy, unspecified; E55.9 Vitamin D deficiency, unspecified
CPT/HCPCS: 49505; 76942; C1781; J0690; J1100; J2001; J2405

== ENCOUNTER → 2023-04-30 11:57 | Outpatient (BNVA) | payer MEDICARE, BC, SELFPAY | PROVIDERS: PCP Family Medicine; Referring Provider Family Medicine; Visit Provider Surgery | DX: Z48.815 Encounter for surgical aftercare following surgery on the digestive system (principal) ==

== ENCOUNTER → 2023-11-24 04:29 | Outpatient (CLI) | payer MEDICARE, BC, SELFPAY ==
--- NOTE | 2023-11-24 07:30 | DI.US_ITS ---
APPROVED REPORT EXAM: Comprehensive 2D, Doppler, and color-flow Echocardiogram Patient Location: Out-Patient Shower Attendant: Slick Greer RDCS (AE) Indications: Aortic insufficiency Conclusion Mildly dilated left ventricle. Mild concentric left ventricular hypertrophy. Ejection fraction is 6 0-65 percent with normal wall motion Right atrium and right ventricle are not well-visualized Moderately dilated left atrium Trileaflet and sclerotic aortic valve with mild to moderate regurgitation. Mean aortic valve gradien t is 12 mmHg, mild aortic stenosis Mitral annular calcification. Mild to moderate mitral regurgitation Dilated ascending aorta measuring 3.9 cm Wall motion Left Ventricle Left ventricle is mildly dilated. The left ventricular systolic function is normal. The left ventricu lar ejection fraction is within the normal range. Mild concentric left ventricular hypertrophy. There is normal LV segmental wall motion. LVEF is 60-65%. Right Ventricle Right ventricle is not well visualized. Right ventricular systolic function could not be assessed. Atria Left atrium is moderately dilated. Right atrium is not well visualized. Unable to obtain subcostal im aging due to bowel gas shadowing. Aortic Valve The Aortic valve is sclerotic. Aortic valve is trileaflet. Mild aortic stenosis Mild to moderate aort ic regurgitation. Mitral Valve Moderate mitral annular calcification. Mild to moderate mitral regurgitation. Tricuspid Valve The tricuspid valve is normal in structure. There is no tricuspid valve stenosis. Mild tricuspid regu rgitation. The RVSP is 13.1 mmHg. Pulmonic Valve Pulmonic valve is not well visualized. Great Vessels The aortic root is normal in size. The ascending aorta is moderately dilated. Aortic arch is not well visualized. IVC is normal in size and collapses >50% with inspiration. Pericardium There is no pericardial effusion. 2D Dimensions IVSD d PLAX 1.29 cm M: 0.6-1.2 Ao Root d 3.59 cm M: 3.1 - 3.7 LVPW d PLAX 1.34 cm M: 0.6 - 1.2 Ao Asc Diam d 3.90 cm M: 2.6 - 3.4 LVID d PLAX 6.16 cm M: 4.2 - 5.8 LVDs 4.00 cm M: 2.5 - 4.0 LV EF Teichholz 63.3 % FS 35.04 % LV EDV (Teich) 191.2 mL LV ESV (Teich) 70.1 mL Stroke Vol Index (Teich) 59.68 M-Mode TAPSE 1.40 cm (M/F) >1.7 Auto EF LV EDV A4C 180.8 mL LV EDV A2C 198.8 mL LV EDV BP 193.2 mL LV ESV A4C 69.7 mL LV ESV A2C 75.8 mL LV ESV BP 73.0 mL LVEF(%) A4C 61.4 % LVEF(%) A2C 61.9 % LVEF(%) BP 62.2 % LV SV A4C 111.1 ml LV SV A2C 123.0 ml LV SV BP 120.2 ml LV CO A4C 6.7 L/min LV CO A2C 7.9 L/min LV CO BP 7.3 L/min HR A4C 60.51 BPM HR A2C 64.06 BPM LV EDV Index (BP) LA Volume LA Length A4C 7.0 cm LA Length A2C 6.5 cm LA Area A4C s 34.65 cm2 LA Area A2C s 24.96 cm2 LA Vol A4C A-L 145.65 mL LA Vol A2C A-L 81.41 mL LA Vol Biplane A-L 113.0 mL LA Vol/BSA A4C A-L LA Vol/BSA A2C A-L LA Vol/BSA BP A-L 55.7 mL/m2 LA Vol A4C MOD 135.9 mL LA Vol A2C MOD 74.5 mL LA Vol BP MOD 103.9 mL LV Diastology MV E' medial 0.047 (>0.07 m/s) MV E' lateral 0.038 (>0.1 m/s) Aortic Valve AoV Vmax 2.27 m/s LVOT Vmax 1.12 m/s AoV Peak Grad 35.6 mmHg LVOT Peak Grad 5.0 mmHg AoV Area (Vmax) 1.24 cm2 LVOT VTI 0.290 m AoV VTI 0.553 m LVOT Mean Grad 3.2 mmHg AoV Mean Taiwo. 1.63 m/s LVOT SV 73.01 mL AoV Mean Grad 12.0 mmHg LVOT Diam s 1.75 cm AoV Area (VTI) 1.32 cm2 AV Regurg Peak Gr. 50.55 mmHg Velocity Ratio 0.49 AR Decel [place] 1.2m/sec2 AR DT 3023 msec AR PHT 877 msec AR Vmax 3.56 m/s Pulmonary Valve PV Vmax 1.29 (0.5-1.5 m/s) RVOT Vmax 0.48 m/s PV Peak Grad 6.7 mmHg RVOT Peak Gr. 0.9 mmHg PV Mean Taiwo 0.81 m/s RVOT VTI 0.116 m PV Mean Grad 3.1 mmHg RVOT Mean Gr. 0.5 mmHg Tricuspid Valve RA Pressure 3.00 mmHg TR Vmax 1.59 m/s TR Peak Grad 10.1 mmHg RVSP (TR) 13.1 mmHg
== END ==
PROVIDERS: PCP Family Medicine; Visit Provider Family Medicine
DX: I35.1 Nonrheumatic aortic (valve) insufficiency (principal)
CPT/HCPCS: 93306

== ENCOUNTER → 2023-12-17 16:16 | Outpatient (CLI) | payer MEDICARE, BC, SELFPAY ==
--- NOTE | 2023-12-17 | DI.RAD_ITS ---
Exam(s) XR LUMBAR SPINE COMPLETE EXAM: XR LUMBAR SPINE COMPLETE CLINICAL HISTORY: M54.50 Low back pain, unspecified. TECHNIQUE: 2D digital imaging was performed of the lumbar spine. Five images were obtained. AP, la teral, right oblique, left oblique and L5-S1 spot views were obtained. COMPARISON: No exams were available for comparison FINDINGS: BONES: No fracture or destructive lesion. Endplate osteophytes are seen throughout the lumbar spine. Degenerative changes of the facets are seen at L4-5 and L5-S1. DISKS: There is disc space narrowing at all levels of the lumbar spine. There is a vacuum disc at th e 4 and L5-S1 disc levels. ALIGNMENT: There is a right convex curvature of the lumbar spine centered at L3. There is grade 1 ant erolisthesis of L5 on S1. SOFT TISSUE: Vascular calcifications are present. IMPRESSION: 1. No acute fractures or subluxations are seen in the lumbar spine. 2. Marked degenerative changes seen in the lumbar spine as described above. DATA REPOSITORY: RADIATION DOSE DELIVERED:
--- NOTE | 2023-12-17 17:25 | DI.VRAD_ITS ---
PROCEDURE INFORMATION: Exam: XR Lumbosacral Spine Exam date and time: 12/17/2023 4:29 PM Age: 78 years old Clinical indication: Patient HX: Low back pain, unspecified TECHNIQUE: Imaging protocol: Radiologic exam of the lumbosacral spine. Views: 4 or 5 views. COMPARISON: MR LUMBAR SPINE WO 04/20/2023 8:23 AM FINDINGS: Bones/joints: Degenerative lumbar spine changes. Moderate dextroscoliosis centered at L3. Severe multilevel degenerative disc disease. Severe disc degeneration L2-L3, L3-L4, L4-L5, and L5-S1. Moderate degenerative disc changes at the lower thoracic spine and the L1-L2 level. Multilevel severe facet arthropathy. No compression fractures. No neoplastic features. No anterolisthesis. Sacroiliac joint degenerative features. Soft tissues: Paravertebral soft tissues are unremarkable. IMPRESSION: 1. Severe degenerative lumbar spine. 2. Dextroscoliosis. 3. No acute compression fractures. No neoplastic features. Dictated and Authenticated by: Silverio Young MD. Ordering:GANESH Castillo MD
== END ==
PROVIDERS: PCP Family Medicine; Visit Provider Physician Assistant Medical
DX: M54.50 Low back pain, unspecified (principal)
CPT/HCPCS: 72110

== ENCOUNTER 2023-12-17 20:58 | Outpatient (REF) | payer MEDICARE, BC, SELFPAY ==
[2023-12-20 13:51] LABS: Lyme Ab w Rflx to Lyme Confirm Negative (Negative)
== END 2023-12-17 20:59 | disposition home or self-care (01) ==
LOC: LBN 20:58
PROVIDERS: PCP Family Medicine; Visit Provider Physician Assistant Medical
DX: M25.552 Pain in left hip (principal)
CPT/HCPCS: 86618

== ENCOUNTER 2024-01-26 21:10 | Outpatient (REF) | payer MEDICARE, BC, SELFPAY ==
[2024-01-26 20:58] LABS: HCT 38.6 % (40.0-50.0); HGB 12.7 g/dL (13.5-17.5); MCH 30.2 pg (27.0-33.0); MCHC 32.9 % (32.0-36.0); MCV 92 fL (80-95); MPV 10.6 fL (8.0-11.0); Platelet Count 304 10^3/uL (130-400); RBC 4.21 10^6/uL (4.36-5.78); RDW 12.4 % (11.8-14.1); RDW-SD 41.7 fL
[2024-01-26 21:02] LABS: ESR 35 mm/hr (0-20)
[2024-01-26 21:31] LABS: ALT 28 U/L (16-63); AST 17 U/L (15-37); Albumin 3.7 g/dL (3.4-5.0); Alkaline Phosphatase 51 U/L (46-116); Anion Gap 11.7 mmol/L (3-11); BUN 15 mg/dL (7-18); Bilirubin, Total 0.38 mg/dL (0.2-1.0); C-Reactive Protein 5.34 mg/dL (<or=0.5); CO2 25.3 mmol/L (21.0-32.0); CREATININE 0.7 mg/dL (0.70-1.30); Calcium 8.8 mg/dL (8.5-10.1); Chloride 98 mmol/L (98-107); Estimated GFR 94.31 (mL/min/1.73m2); Glucose 98 mg/dL (74-106); Potassium 4.3 mmol/L (3.5-5.1); Sodium 135 mmol/L (136-145)
[2024-01-28 11:04] LABS: Lyme Ab w Rflx to Lyme Confirm Negative (Negative)
[2024-01-30 16:38] LABS: Anaplasma phagocytophilum Negative (Negative); B. miyamotoi PCR Negative (Negative); Babesia divergens/MO-1 Negative (Negative); Babesia duncani Negative (Negative); Babesia microti Negative (Negative); Ehrlichia chaffeensis Negative (Negative); Ehrlichia ewingii/canis Negative (Negative); Ehrlichia muris eauclairensis Negative (Negative)
== END 2024-01-26 21:11 | disposition home or self-care (01) ==
LOC: NCHCN 21:10
PROVIDERS: PCP Family Medicine; Visit Provider Nurse Practitioner Family
DX: M79.18 Myalgia, other site (principal); R79.82 Elevated C-reactive protein (CRP)
CPT/HCPCS: 80053; 85027; 85652; 87798; 86140; 86618

== ENCOUNTER 2024-02-10 09:57 | Outpatient (CLI) | payer MEDICARE, BC, SELFPAY ==
--- NOTE | 2024-02-10 09:40 | DI.RAD_ITS ---
Exam(s) XR CHEST 2V PA LATERAL EXAM: XR CHEST 2V PA LATERAL CLINICAL HISTORY: COUGH, R05.9, TECHNIQUE: 2D digital imaging was performed. Two views. COMPARISON: No exams were available for comparison FINDINGS: HEART: Markedly enlarged. Aorta: Not dilated. PULMONARY VASCULATURE: Normal. MEDIASTINUM: Small hiatal hernia. LUNGS: Clear. PLEURAL SPACE: No pleural effusion or pneumothorax. BONE:Degenerative changes in the thoracic spine. No compression fractures. SOFT TISSUES: Unremarkable. IMPRESSION: Cardiomegaly and hiatal hernia. No acute abnormality. DATA REPOSITORY: RADIATION DOSE DELIVERED:
== END 2024-02-10 10:17 ==
PROVIDERS: PCP Family Medicine; Visit Provider Nurse Practitioner Family
DX: K44.9 Diaphragmatic hernia without obstruction or gangrene (principal)
CPT/HCPCS: 71046

== ENCOUNTER 2024-02-28 08:13 | Outpatient (CLI) | payer MEDICARE, BC, SELFPAY ==
--- NOTE | 2024-02-28 08:00 | RT.EKG_ITS ---
APPROVED REPORT Exam: Resting ECG Reason for Exam: aoritc dilation Patient Location: O HR:69 bpm ECG Measurements Heart Rate 69 AXIS AK 194 P -3 QRSd 108 QRS -22 QT 402 T 166 QTc 431 Conclusion Sinus rhythm...normal P axis, V-rate 50- 99 LVH with secondary repolarization abnormality...multi-LVH criteria, abnrm ST-T
== END 2024-02-28 08:14 | disposition home or self-care (01) ==
LOC: DI.CARD 08:14
PROVIDERS: PCP Family Medicine; Visit Provider Internal Medicine Cardiovascular Disease
DX: I35.1 Nonrheumatic aortic (valve) insufficiency (principal); I77.810 Thoracic aortic ectasia
CPT/HCPCS: 93010

== ENCOUNTER → 2024-02-28 09:39 | Outpatient (BNVA) | payer MEDICARE, BC, SELFPAY | PROVIDERS: PCP Family Medicine; Referring Provider Family Medicine; Visit Provider Internal Medicine Cardiovascular Disease | DX: I42.2 Other hypertrophic cardiomyopathy (principal); I77.819 Aortic ectasia, unspecified site; I35.1 Nonrheumatic aortic (valve) insufficiency | CPT/HCPCS: 93005; 99213 ==

== ENCOUNTER 2024-02-29 12:58 | Outpatient (CLI) | payer MEDICARE, BC, SELFPAY ==
[2024-02-29 12:20] LABS: HCT 37.5 % (40.0-50.0); HGB 12.4 g/dL (13.5-17.5); MCH 30.1 pg (27.0-33.0); MCHC 33.1 % (32.0-36.0); MCV 91 fL (80-95); Platelet Count 212 10^3/uL (130-400); RBC 4.12 10^6/uL (4.36-5.78); RDW 14.1 % (11.8-14.1); RDW-SD 46.6 fL; WBC 9.71 10^3/uL (4.4-10.8)
[2024-02-29 12:23] LABS: ESR 7 mm/hr (0-20)
[2024-02-29 15:54] LABS: C-Reactive Protein 0.94 mg/dL (<or=0.5)
== END 2024-02-29 12:59 | disposition home or self-care (01) ==
LOC: LOS 12:58
PROVIDERS: PCP Family Medicine; Visit Provider Family Medicine
DX: M35.3 Polymyalgia rheumatica (principal)
CPT/HCPCS: 36415; 85027; 85652; 85025; 86140

== ENCOUNTER 2024-03-08 13:05 | Outpatient (CLI) | payer MEDICARE, BC, SELFPAY ==
[2024-03-08 17:17] LABS: ALT 26 U/L (16-63); AST 16 U/L (15-37); Albumin 3.7 g/dL (3.4-5.0); Alkaline Phosphatase 50 U/L (46-116); Anion Gap 7.8 mmol/L (3-11); BUN 15 mg/dL (7-18); CO2 29.2 mmol/L (21.0-32.0); CREATININE 0.9 mg/dL (0.70-1.30); Calcium 8.7 mg/dL (8.5-10.1); Chloride 103 mmol/L (98-107); Estimated GFR 87.42 (mL/min/1.73m2); Glucose 133 mg/dL (74-106); Sodium 140 mmol/L (136-145); Total Protein 6.9 g/dL (6.4-8.2)
[2024-03-09 21:01] LABS: PSA, Diagnostic 6.3 ng/mL (<=6.5)
[2024-03-16 14:12] LABS: Testosterone, Free 4.61 ng/dL (3.08-11.3); Testosterone, Total 177 ng/dL (240-950)
== END 2024-03-08 13:06 | disposition home or self-care (01) ==
PROVIDERS: PCP Family Medicine; Visit Provider Urology
DX: N40.0 Benign prostatic hyperplasia without lower urinary tract symptoms (principal); E29.1 Testicular hypofunction
CPT/HCPCS: 36415; 80053; 84153; 84402; 84403

== ENCOUNTER 2024-03-28 11:07 | Outpatient (CLI) | payer MEDICARE, BC, SELFPAY ==
[2024-03-28 11:11] LABS: ESR 7 mm/hr (0-20)
[2024-03-28 12:09] LABS: C-Reactive Protein 1.29 mg/dL (<or=0.5)
== END 2024-03-28 11:08 | disposition home or self-care (01) ==
LOC: LBO 11:08
PROVIDERS: PCP Family Medicine; Visit Provider Family Medicine
DX: M35.3 Polymyalgia rheumatica (principal)
CPT/HCPCS: 36415; 85652; 86140

== ENCOUNTER 2025-03-12 15:39 | Outpatient (REF) | payer MEDICARE, BC, SELFPAY ==
[2025-03-12 21:52] LABS: Anion Gap 6.2 mmol/L (3-11); BUN 16 mg/dL (7-18); CO2 29.8 mmol/L (21.0-32.0); Calcium 9.1 mg/dL (8.5-10.1); Chloride 101 mmol/L (98-107); Estimated GFR 93.73 (mL/min/1.73m2); Glucose 72 mg/dL (74-106); Potassium 4.6 mmol/L (3.5-5.1); Sodium 137 mmol/L (136-145)
[2025-03-13 15:26] LABS: Vitamin D 25 Total 33 ng/mL (30-100)
[2025-03-13 20:11] LABS: PSA, Screening 4.4 ng/mL (<=6.5)
== END 2025-03-12 15:40 | disposition home or self-care (01) ==
LOC: NCHCN 15:39
PROVIDERS: PCP Family Medicine; Visit Provider Family Medicine
DX: E55.9 Vitamin D deficiency, unspecified (principal); E29.1 Testicular hypofunction
CPT/HCPCS: 80048; 82306; 84153; 84403

== ENCOUNTER 2025-03-21 03:52 | Outpatient (RCR) | payer MEDICARE, BC, SELFPAY ==
[2025-03-21] MEDS: Normal Saline Flush 10 ML SYR IVP (08:21)
== END 2025-04-20 23:59 | disposition home or self-care (01) ==
LOC: INF 03:52
PROVIDERS: PCP Family Medicine; Visit Provider Hospitalist
DX: M85.80 Other specified disorders of bone density and structure, unspecified site (principal)
CPT/HCPCS: 96365; J3489